=== PATIENT | male | born 1960 | race Caucasian/White ===

== ENCOUNTER 2020-07-08 05:39 | Emergency (ER) | payer MEDICAID ==
[~2020-07-08] VITALS: Ht 172.7 cm; Wt 86.2 kg
[2020-07-08 06:02] VITALS: BP 123/87; Ht 172.7 cm; Wt 86.2 kg
== END 2020-07-08 07:30 | disposition home or self-care (01) ==
LOC: ED 05:39
DX: M25.561 Pain in right knee (principal); F17.210 Nicotine dependence, cigarettes, uncomplicated; Z59.0 Homelessness; W01.0XXA Fall on same level from slipping, tripping and stumbling without subsequent striking against object, initial encounter; Y93.01 Activity, walking, marching and hiking; Y92.89 Other specified places as the place of occurrence of the external cause; Y99.8 Other external cause status